=== PATIENT | female | born 1985 | race African-American/Black ===

== ENCOUNTER 2018-11-19 18:18 | Emergency (ER) | payer OTHER ==
[~2018-11-19] VITALS: Ht 165.1 cm; Wt 86.2 kg
[~2018-11-19 18:18] MED LIST: ALBUTEROL SULF8.5 GM INH; BACITRACIN ZIN1 EACH TOPIC; DOXYCYCLINE MO100 MG ORAL; IBUPROFEN600 MG ORAL; LEVAQUIN500 MG ORAL; NORCO 5-325 TA1 EACH ORAL; PROMETHAZINE-C118 M1 ORAL
[2018-11-19] MEDS ORDERED: NKM (18:29)
--- NOTE | 2018-11-19 18:48 | NUR ---
Note efrenone in EDM - 11/19/18 at 1852 by DONYA ED Nurse Note: PT WAKED IN TO ED DUE TO RIGHT 1ST DIGIT FINGER PAIN FOR 3 DAYS. PER PT, NO RECENT INJURY BUT UNABLE TO BEND. LIMITIED ROM NOTED. AAO 4. RESPIRATIONS EVEN AND NON-LABORED NOTED. WILL WAIT FOR THE FURTHER ORDER.
--- NOTE | 2018-11-19 18:48 | NUR ---
ED Nurse Note: PT WALKED IN TO ER TODAY FROM HOME. AOX4. PT C/O PAIN, 8/10 AT RIGHT THUMB X 3 DAYS EXACERBATED BY MOVEMENT. PT HAS LIMITED ROM OF DIGIT BUT CIRCULATION AND SENSATION INTACT. CAP REFILL <3 SECONDS, MUSCLE STRENGTH 5/5 OF HAND. SKIN CLEAN, DRY, AND INTACT. PT DENIES ANY RECENT INJURY OR TRAUMA TO DIGIT.
[2018-11-19] MEDS ORDERED: Ketorolac 30mg Inj IM ONE (19:00)
[2018-11-19 19:09] VITALS: BP 126/82
--- NOTE | 2018-11-19 19:11 | NUR ---
ED Nurse Note: REPORT GIVEN TO AMBROSIO PATTERSON.
--- NOTE | 2018-11-19 19:24 | Emergency Room Report ---
History of Present Illness General Chief Complaint: Upper Extremity Injury Source: Patient Present Illness HPI 33-year-old female patient presents ER complaint right thumb pain for the past 2 days. Denies acute injury or trauma. Reports mild swelling. Reports pain with bending at the MCP and interphalangeal joints. Denies redness. Denies fever vomiting. Denies history of arthritis or gout. 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 Denies other aggravating or relieving factors. Reports right-hand dominant. Allergies: Coded Allergies: No Known Allergies (Verified Allergy, Unknown, 05/12/08) Patient History Past Medical History: see triage record Last Menstrual Period: 11/02/2018 Reviewed Nursing Documentation: PMH: Agreed; PSxH: Agreed Nursing Documentation-PMH Past Medical History: No Stated History Review of Systems All Other Systems: negative except mentioned in HPI Physical Exam Vital Signs Date Time Temp Pulse Resp B/P (MAP) Pulse Ox O2 Delivery O2 Flow Rate FiO2 11/19/18 18:26 98.8 102 18 122/77 98 Room Air Sp02 EP Interpretation: reviewed, normal General Appearance: well appearing, no apparent distress, alert, GCS 15, non- toxic Head: normocephalic, atraumatic Eyes: bilateral eye normal inspection, bilateral eye PERRL ENT: hearing grossly normal, normal pharynx, no angioedema, normal voice, uvula midline, moist mucus membranes Neck: full range of motion Respiratory: lungs clear, normal breath sounds, no rhonchi, no respiratory distress, no accessory muscle use, no wheezing, speaking full sentences Cardiovascular #1: regular rate, rhythm, no edema Cardiovascular #2: 2+ radial (R), 2+ radial (L) Musculoskeletal: back normal, digits/nails normal, gait/station normal, decreased range of motion - Secondary to pain, other - NVI, sensation intact light touch, cap refill less than 2 seconds, no gouty tophi, no erythema, no edema, tender - Right thumb: MCP and interphalangeal joint Neurologic: alert, oriented x3, responsive, motor strength/tone normal, sensory intact Psychiatric: mood/affect normal Skin: no rash Medical Decision Making PA Attestation Dr. Em is my supervising Physician whom patient management has been discussed with. Diagnostic Impression: Primary Impression: Finger sprain ER Course Pt. presents to the ED c/o right thumb pain. Ddx considered but are not limited to fracture, sprain, strain, contusion, dislocation, arthritis, ligamentous injury. No erythema, no warmth to touch, no fever, nontoxic appearing, low suspicion for septic joint. Soft compartments, no pulselessness, no pallor, no paresthesias, low suspicion for compartment syndrome at this time. Vital signs: are WNL, pt. is afebrile Ordered X-ray and pain medication. ER COURSE Provided with pain medication. An X-ray of the right hand shows no acute disease per the preliminary reading. Likely sprain causing pain symptoms. Discuss results with the patient. Provided patient with copy of results. Instructed patient to followup with PCP and discuss results of report with patient, discuss need for further treatment and referral. Thumb spica splint was applied to the right hand was checked afterwards by me showing good alignment and support with distal neurovascular functioning intact. Patient instructed on RICE method: rest, ice, compression, elevation. Patient instructed on rest, ice and heat. Patient instructed to be WBAT Contact information for orthopedic urgent care provided, follow-up with urgent care if unable to followup with primary care provider and get referral to sales merchandising specialist. Followup with primary care provider. Discuss referral to ortho/pain management/ PT as needed. Discuss further imaging with MRI/CT as needed. DISCHARGE: At this time pt. is stable for d/c to home. Patient is resting comfortably, in no acute distress, nontoxic appearing, talking without difficulty. Will provide printed patient care instructions, and any necessary prescriptions. Patient instructed to follow with primary care provider in 3 - 5 days and to request further follow-up as needed. Care plan and follow up instructions have been discussed with the patient prior to discharge. Take medications as directed. Patient questions asked and answered. Patient reports understanding and agreement to treatment plan. ER precautions given, patient instructed to return to ER immediately for any new or worsening of symptoms. - Please note that this Emergency Department Report was dictated using [employer] worker technology software, occasionally this can lead to erroneous entry secondary to interpretation by the dictation equipment. Other X-Ray Diagnostic Results Other X-Ray Diagnostic Results : X-Ray ordered: Right hand # of Views/Limited Vs Complete: 3 View Indication: Pain EP Interpretation: Yes PA Xray: Interpretation reviewed, by supervising MD, and agrees with findings. Interpretation: no dislocation, no soft tissue swelling, no fractures, other - Degenerative changes Impression: No acute disease PEDRO Scribgerber Text Dorian Guadalupe PA-C Last Vital Signs Date Time Temp Pulse Resp B/P (MAP) Pulse Ox O2 Delivery O2 Flow Rate FiO2 11/19/18 19:09 98.6 96 16 126/82 99 Room Air Status: improved Disposition: HOME, SELF-CARE Condition: Stable Scripts Ibuprofen* (MOTRIN*) 600 Mg Tablet 600 MG ORAL Q8H PRN for For Pain, #30 TAB 0 Refills Prov: Clint Guadalupe 11/19/18 Patient Instructions: Finger Sprain, [id number] Additional Instructions: Patient instructed to follow up with primary care provider and discuss further referral to orthopedics/physical therapy/pain management as needed. If unable to followup with PCP, followup with orthopedic urgent care in 5-7 days , call to schedule appointment. Patient instructed on RICE method: rest, ice, compression, elevation. Patient instructed to WBAT. Take medications as directed. Patient questions asked and answered. ER precautions given, patient instructed to return to ER immediately for any new or worsening of symptoms. [facility] [address] [facility] [address] [facility], [address] [email or web address] Clint Guadalupe Nov 19, 2018 19:23
--- NOTE | 2018-11-19 19:41 | Diagnostic Imaging Report ---
EXAM: XR Right Hand Complete, 3 or More Views CLINICAL HISTORY: PAIN TECHNIQUE: Frontal, lateral and oblique views of the right hand. COMPARISON: No relevant prior studies available. FINDINGS: Bones/joints: Unremarkable. No acute fracture. No dislocation. Soft tissues: Unremarkable. No radiopaque foreign body. IMPRESSION: Normal right hand x-rays. <MYCVCSECTION> Critical Value Communications 11/19/18 19:56 Call From [facility] Dorian Guadalupe on 11/19 19:55 (-07:00)
[2018-11-19] MEDS ORDERED: IBUPROFEN600 MG ORAL (20:08)
[2018-11-19 20:14] VITALS: BP 126/78
--- NOTE | 2018-11-19 20:14 | NUR ---
ER DISCHARGE NOTE: Patient is cleared to be discharged per ERMD, pt is aox4, on room air, with stable vital signs. pt was given dc and prescription instructions, pt was able to verbalize understanding, pt id band removed. pt is able to ambulate with steady gait. pt took all belongings.
== END 2018-11-19 20:14 | disposition home or self-care (01) ==
LOC: EMR 20:00
DX: S63.601A Unspecified sprain of right thumb, initial encounter (principal); X58.XXXA Exposure to other specified factors, initial encounter; Y92.9 Unspecified place or not applicable
CPT/HCPCS: 73130; 96372; 99283; J1885